=== PATIENT | female | born 1935 | race Caucasian/White ===

== ENCOUNTER 2017-01-30 06:16 | Day surgery (SDC) | payer MEDICARE, BC ==
[~2017-01-30 06:16] MED LIST: CEFAZOLIN 2 GM/D5W RTU 2 GM/50 ML RTUPB IV PRN
[2017-01-30 06:40] LABS: HEMATOCRIT 38.6 % (36.0-47.0); HEMOGLOBIN 12.5 g/dL (12.0-15.5); HGB HCT DIFFERENCE -1.1; MEAN CORPUSCULAR HEMOGLOBIN 28.1 pg (27.0-33.4); MEAN CORPUSCULAR HGB CONC 32.4 g/dL (32.0-36.0); MEAN CORPUSCULAR VOLUME 87 fl (80-97); RED BLOOD COUNT 4.45 10^6/uL (3.72-5.28); RED CELL DISTRIBUTION WIDTH 15.1 % (11.5-14.0); WHITE BLOOD COUNT 12.5 10^3/uL (4.0-10.5)
[2017-01-30] MEDS ORDERED: MIDAZOLAM 2 MG/2 ML INJ ONE ×2 (06:51→10:31)
[2017-01-30] MEDS ORDERED: PROPOFOL INJ 200 MG/20 ML VIAL IV ONE ×2 (06:51→10:32)
[2017-01-30] MEDS ORDERED: FENTANYL CITRATE INJ/PF 100 MCG/2 ML AMPUL ONE ×3 (06:51→10:31)
[2017-01-30] MEDS ORDERED: IBUPROFEN INJ 800 MG/8 ML VIAL IV ONE (06:52)
[2017-01-30 06:59] LABS: ANION GAP 10 (5-19); BLOOD UREA NITROGEN 16 mg/dL (7-20); CALCIUM 9.2 mg/dL (8.4-10.2); CARBON DIOXIDE 22 mmol/L (22-30); CHLORIDE 104 mmol/L (98-107); CREATININE RESULT 0.98 mg/dL (0.52-1.25); GLUCOSE 129 mg/dL (75-110); POTASSIUM 4.6 mmol/L (3.6-5.0); SODIUM 136.2 mmol/L (137-145)
[2017-01-30] MEDS ORDERED: ACETAMINOPHEN 0 ML IV ONE (07:16)
[2017-01-30] MEDS ORDERED: LIDOCAINE 1% INJ-PF (10 MG/ML) 30 ML SDV ONE (07:30)
[2017-01-30] MEDS ORDERED: BUPIVACAINE HCL 0.5 % INJ/PF 30 ML SDV ONE (07:30)
--- NOTE | 2017-01-30 07:30 | RADIOLOGY REPORT (SQ) ---
EXAM DESCRIPTION: CHEST SINGLE VIEW COMPLETED DATE/TIME: 01/30/2017 7:00 am REASON FOR STUDY: surgery COMPARISON: None. EXAM PARAMETERS: NUMBER OF VIEWS: One view. TECHNIQUE: Single frontal radiographic view of the chest acquired. RADIATION DOSE: NA LIMITATIONS: None. FINDINGS: LUNGS AND PLEURA: No opacities, masses or pneumothorax. No pleural effusion. MEDIASTINUM AND HILAR STRUCTURES: No masses. Contour normal. HEART AND VASCULAR STRUCTURES: Heart normal in size. Normal vasculature. BONES: No acute findings. HARDWARE: Surgical clips overlie bilateral lower hemithoraces. OTHER: No other significant finding. IMPRESSION: NO ACUTE RADIOGRAPHIC FINDING IN THE CHEST. TECHNICAL DOCUMENTATION: JOB ID: [id number]
--- NOTE | 2017-01-30 07:53 | EKG REPORT ---
SEVERITY:- ABNORMAL ECG - ATRIAL FIBRILLATION, V-RATE 99-160 : Confirmed by: Wil Acosta MD 30-Jan-2017 07:52:44
[2017-01-30] MEDS ORDERED: METOPROLOL SUCCINATE 25 MG TAB.SR.24H PO ONE (08:00)
[2017-01-30] MEDS ORDERED: METOPROLOL TARTRATE 25 MG TABLET PO ONE (08:00)
[2017-01-30] MEDS ORDERED: ROPIVACAINE HCL 0.5% INJ/PF (5 MG/1 ML) 30 ML SDV ONE (08:38)
[2017-01-30] MEDS ORDERED: LIDOCAINE 2%/EPINEPHRINE INJ 20 ML VIAL ONE (08:39)
[2017-01-30] MEDS ORDERED: LIDOCAINE 2% INJ (20 MG/ML) 20 ML MDV ONE (08:40)
[2017-01-30] MEDS ORDERED: ONDANSETRON HCL INJ/PF 4 MG/2 ML SDV IV PRN (08:59)
[2017-01-30] MEDS ORDERED: MORPHINE SULFATE 10 MG/ML INJ IV PRN ×2 (08:59→11:53)
[2017-01-30] MEDS ORDERED: PROMETHAZINE HCL INJ 25 MG/1 ML VIAL IV PRN ×2 (08:59)
[2017-01-30] MEDS ORDERED: FENTANYL CITRATE INJ/PF 100 MCG/2 ML AMPUL IV PRN ×3 (08:59)
[2017-01-30] MEDS ORDERED: MEPERIDINE HCL/PF INJ 25 MG/1 ML DISP.SYRIN IV PRN (08:59)
[2017-01-30] MEDS ORDERED: OXYCODONE-ACETAMINOPHEN 5-325 MG TABLET PO PRN ×3 (08:59→11:53)
[2017-01-30] MEDS ORDERED: DIPHENHYDRAMINE HCL 50 MG/ML VIAL IV PRN (08:59)
[2017-01-30 09:06] LABS: PROTHROMBIN TIME 12.6 SEC (11.4-15.4)
[2017-01-30 09:09] LABS: PARTIAL THROMBOPLASTIN TIME 25.7 SEC (23.5-35.8)
[2017-01-30] MEDS ORDERED: DEXMEDETOMIDINE INJ 80 MCG/20 ML VIAL IV ONE (10:32)
[2017-01-30] MEDS ORDERED: ACETAMINOPHEN 100 ML IV ONE (10:32)
--- NOTE | 2017-01-30 11:51 | Operative Report ---
Operative Report DATE OF SURGERY: 01/30/17 PREOPERATIVE DIAGNOSIS: S/P ORIF Right Distal Radius w/ Distraction Bridge Plate POSTOPERATIVE DIAGNOSIS: Same OPERATION: Removal Hardware Right Wrist w/ Extensor Tenolysis SURGEON: BRIANA WAY ANESTHESIA: IV-Regional COMPLICATIONS: None ESTIMATED BLOOD LOSS: Minimal PROCEDURE: Indication for above procedure: 82-year-old female who sustained a open right distal radius fracture at [place]. Patient subsequently underwent definitive fixation with distraction bridge plating. Postoperatively patient did well fracture healed appropriately. Her range of motion of her digits improved although she continued to have stiffness with attempted range of motion. Given the fracture healing and longevity the joint decision was made to proceed with removal of distraction bridge plate and extensor tenolysis benefits were explained patient verbalized understanding consented for the procedure. Procedure In Detail: Patient was seen and evaluated in the preoperative holding area patient received right upper extremity block. The RIGHT upper extremity was initialized and marked. Patient received 2g of Ancef IV for bacterial prophylaxis. Patient was taken back to the operative room where transferred to the operative table and placed under MAC anesthesia. Once they were adequately anesthetized a nonsterile tourniquet was placed on the upper extremity. A surgical team debriefing was performed ensuring all instrumentation was available, the surgical procedure was discussed with possible concerns reviewed. Local block was performed proximally and distally at the previous surgical sites utilizing 10 cc of 50: 50 mixture 1% lidocaine and 0.5% Marcaine. The upper extremity was prepped with chlorhexidine and alcohol and draped in a sterile fashion. A timeout was done identifying correct patient, procedure and extremity everyone in attendance agree with this and verbalized no concerns. The extremity was exsanguinated the tourniquet was inflated to 250 mmHg. Previous incision distally along the index metacarpal was made. Blunt dissection was performed exposing the underlying distraction bridge plate. The distal screws were then removed. I then turned my attention to the proximal aspect. Previous skin incision was utilized blunt dissection was performed retracting the superficial radial nerve in a radial direction the proximal aspect of the plate was identified. The screws were successfully removed. I was then able to elevate the plate with a periosteal elevator and successfully remove the hardware. Once complete the proximal wound was irrigated with normal saline I turned my attention to extensor tenolysis. Most distal incision I was able to identify the extensor tendon within the fourth dorsal compartment. Using a Heath elevator and with the scissors I was able to free up any tendon adhesions about the extensor tendon. Patient had full passive flexion of all digits to the distal palmar crease. Passive range of motion I was able achieve 35/0 flexion/extension passive wrist range of motion. C-arm fluoroscopy was obtained demonstrating no fracture of the distal radius with acceptable alignment. The wounds were then irrigated with normal saline. There was a small skin tear proximally given patient's friable skin. Skin was closed with interrupted 4-0 nylon suture. An additional 10 cc of 0.5% Marcaine was injected for postoperative pain control. Wound was dressed with Xeroform 4 x 4's and patient was placed in a soft dressing. Sponge counts, instrument counts, needle counts counts were correct. Patient was then awoken from anesthesia. Transferred from the operating room table to the operating room stretcher. There was no intraoperative complications patient tolerated procedure well stable to PACU. Postoperative plan: Patient will follow-up with her local orthopedist or myself within 10-14 days for suture removal. She will begin range of motion immediately with her home occupational therapist.
--- NOTE | 2017-01-30 11:53 | PDOC DISCHARGE SUMMARY ---
Discharge Summary (SDC) - Discharge Final Diagnosis: Right open distal radius fracture status post distraction bridge plating Date of Surgery: 01/30/17 Discharge Date: 01/30/17 Condition: Good Treatment or Instructions: Schedule Follow Up w/ Dr. Nathan Pandey @ [facility] to be seen in 10-14 days or as scheduled [place]: [place]: [place]: May remove dressing on postop day #3, keep incision covered and dry. Ice and elevate May begin wrist and finger range of motion immediately attempting to make full fist. Stool softener of choice when on pain medication. Prescriptions: Oxycodone HCl/Acetaminophen [Percocet 5-325 mg Tablet] 1 - 2 tab PO ASDIR PRN # 45 tablet PRN Reason: Discharge Diet: As Tolerated Respiratory Treatments at Home: Deep Breathing/Coughing Discharge Activity: Activity As Tolerated Report the Following to Your Physician Immediately: Fever over 101 Degrees, Unusual Bleeding, Redness, Swelling, Warmth, Increased Soreness
--- NOTE | 2017-01-30 13:04 | RADIOLOGY REPORT (SQ) ---
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 IMPRESSION: Please see combined report for performance of procedure and radiologic supervision and i nterpretation.
--- NOTE | 2017-01-30 13:04 | RADIOLOGY REPORT (SQ) ---
EXAM DESCRIPTION: WRIST RIGHT 2 VIEWS COMPLETED DATE/TIME: 01/30/2017 12:53 pm REASON FOR STUDY: HARDWARE REMOVAL RT WRIST ASSITED W/ FLUORO IN OR S52.501D UNSP FX THE LOWER END R RAD, SUBS FOR CLOS FX W ROU Z79.01 S[employer]IOR LIVING (CURRENT) USE OF ANTICOAGULANTS COMPARISON: None. FLUOROSCOPY TIME: Total fluoroscopy time was 10.0 seconds. 5 images saved to PACS. TECHNIQUE: Intra-operative images acquired during surgical procedure to evaluate progress. NUMBER OF IMAGES: 5 LIMITATIONS: None. FINDINGS: Fluoroscopy was provided for intraoperative procedure. Please refer to the operative repo rt for complete discussion. IMPRESSION: IMAGE(S) OBTAINED DURING PROCEDURE. COMMENT: Quality ID [id number]: Final reports for procedures using fluoroscopy that document radiation exp osure indices, or exposure time and number of fluorographic images (if radiation exposure indices are not available) Please consult full operative report of the attending physician for description of the procedure. TECHNICAL DOCUMENTATION: JOB ID: [id number] [employer]- All Rights Reserved
[2017-01-30 13:51] VITALS: BP 110/58
== END 2017-01-30 13:40 | disposition home or self-care (01) ==
LOC: OROUT 06:16
PROVIDERS: ATTEND Orthopaedic Surgery
PROC: 0PPH04Z Removal of Internal Fixation Device from Right Radius, Open Approach (ICD-10-PCS; 2017-01-30)
PROC: 0LN50ZZ Release Right Lower Arm and Wrist Tendon, Open Approach (ICD-10-PCS; principal; 2017-01-30 08:30)
DX: S52.501D Unspecified fracture of the lower end of right radius, subsequent encounter for closed fracture with routine healing (principal); X58.XXXD Exposure to other specified factors, subsequent encounter; M65.831 Other synovitis and tenosynovitis, right forearm; I48.91 Unspecified atrial fibrillation; I11.0 Hypertensive heart disease with heart failure; I50.9 Heart failure, unspecified; I20.9 Angina pectoris, unspecified; R06.02 Shortness of breath; E89.0 Postprocedural hypothyroidism; M19.90 Unspecified osteoarthritis, unspecified site; Z79.01 Long term (current) use of anticoagulants; Z88.2 Allergy status to sulfonamides; Z88.6 Allergy status to analgesic agent; Z79.899 Other long term (current) drug therapy; Z47.2 Encounter for removal of internal fixation device; Z85.828 Personal history of other malignant neoplasm of skin; Z86.73 Personal history of transient ischemic attack (TIA), and cerebral infarction without residual deficits
CPT/HCPCS: 25295; 20680; 36415; 85027; 85610; 85730; 80048; 71010; 73100; 93005; 93010; J2795; J2250; J3490 ×3; J3010; A9270; J2704; J0690; J0131; 01830; J1741